=== PATIENT | female | born 1950 | race Caucasian/White ===

== ENCOUNTER 2017-10-02 16:45 | Emergency (ER) | payer MEDICARE, MEDICAID ==
--- NOTE | 2017-10-02 18:03 | ER Document Report ---
ED Medical Screen (RME) - General Chief Complaint: Arm Problem Stated Complaint: LEFT ARM PAIN Time Seen by Provider: 10/02/17 18:01 Mode of Arrival: Ambulatory Information source: Patient TRAVEL OUTSIDE OF THE [place] IN LAST 30 DAYS: No - HPI Patient complains to provider of: L arm pain Onset: Other - pt. with 2 day h/o L arm pain and swelling - Related Data Allergies/Adverse Reactions: latex [Latex] Allergy (Intermediate, Verified 10/02/17 17:59) Hives phenytoin sodium [From Dilantin] Allergy (Intermediate, Verified 10/02/17 17:59) Hives phenytoin sodium extended [From Dilantin] Allergy (Intermediate, Verified 17:59) Hives topiramate [From Topamax] Allergy (Mild, Verified 10/02/17 17:59) Hives,heart races amoxicillin [Amoxicillin] Allergy (Verified 10/02/17 17:59) amoxicillin trihydrate [From Augmentin] Allergy (Verified 10/02/17 17:59) CLOSED THROAT bupropion HCl [From Wellbutrin] Allergy (Verified 10/02/17 17:59) carbamazepine [From Tegretol] Allergy (Verified 10/02/17 17:59) Hives clarithromycin [From Biaxin] Allergy (Verified 10/02/17 17:59) CLOSES THROAT divalproex sodium [From Depakote] Allergy (Verified 10/02/17 17:59) gabapentin [From Neurontin] Allergy (Verified 10/02/17 17:59) Potassium Clavulanate * [From Augmentin] Allergy (Verified 10/02/17 17:59) CLOSED THROAT quetiapine fumarate [From Seroquel] Allergy (Verified 10/02/17 17:59) TWITCHES sulfamethoxazole [From Bactrim] Allergy (Verified 10/02/17 17:59) trimethoprim [From Bactrim] Allergy (Verified 10/02/17 17:59) Past Medical History - Social History Chew tobacco use (# tins/day): No Frequency of alcohol use: daily Drug Abuse: None - Past Medical History Cardiac Medical History: Reports: Hx Hypercholesterolemia, Hx Hypertension Neurological Medical History: Reports: Hx Seizures - since 1989/none x 5 yrs at least Renal/ Medical History: Denies: Hx Peritoneal Dialysis GI Medical History: Reports: Hx Hiatal Hernia - LNF Skin Medical History: Reports Hx MRSA Psychiatric Medical History: Reports: Hx Anxiety, Hx Depression Past Surgical History: Reports: Hx Abdominal Surgery, Hx Cholecystectomy, Hx Hysterectomy, Hx Orthopedic Surgery - Right ankle, left shoulder., Hx Tonsillectomy - Immunizations Hx Diphtheria, Pertussis, Tetanus Vaccination: Yes Physical Exam - Vital signs Vitals: Temp Pulse Resp BP Pulse Ox 97.9 F 83 16 104/69 94 10/02/17 16:51 10/02/17 16:51 10/02/17 16:51 10/02/17 16:51 10/02/17 16:51 Course - Vital Signs Vital signs: Temp Pulse Resp BP Pulse Ox 97.9 F 83 16 104/69 94 10/02/17 16:51 10/02/17 16:51 10/02/17 16:51 10/02/17 16:51 10/02/17 16:51
[2017-10-02 19:03] LABS: ABSOLUTE EOSINOPHILS # (AUTO) 0.5 10^3/uL (0.0-0.6); ABSOLUTE LYMPHOCYTES (AUTO) 1.8 10^3/uL (0.5-4.7); ABSOLUTE MONOCYTES (AUTO) 0.3 10^3/uL (0.1-1.4); ABSOLUTE NEUT (AUTO) 4.8 10^3/uL (1.7-8.2); BASOPHILS % (AUTO) 0.6 % (0-2); EOSINOPHILS % (AUTO) 6.8 % (0-6); HEMATOCRIT 36.5 % (36.0-47.0); HEMOGLOBIN 12.4 g/dL (12.0-15.5); LYMPHOCYTES % (AUTO) 24.3 % (13-45); MEAN CORPUSCULAR HEMOGLOBIN 31.1 pg (27.0-33.4); MEAN CORPUSCULAR VOLUME 92 fl (80-97); MONOCYTES % (AUTO) 4.5 % (3-13); PLATELET COUNT 230 10^3/uL (150-450); RED BLOOD COUNT 3.98 10^6/uL (3.72-5.28); RED CELL DISTRIBUTION WIDTH 13.4 % (11.5-14.0); SEGMENTED NEUTROPHILS % (AUTO) 63.8 % (42-78); TOTAL CELLS COUNTED % (AUTO) 100 %; WHITE BLOOD COUNT 7.5 10^3/uL (4.0-10.5)
[2017-10-02 19:34] LABS: BLOOD UREA NITROGEN 15 mg/dL (7-20); CALCIUM 10.3 mg/dL (8.4-10.2); GLUCOSE 76 mg/dL (75-110)
[2017-10-02 19:35] LABS: ALANINE AMINOTRANSFERASE 34 U/L (9-52); ALBUMIN 4.9 g/dL (3.5-5.0); ALKALINE PHOSPHATASE 87 U/L (38-126); ANION GAP 13 (5-19); ASPARTATE AMINO TRANSFERASE 35 U/L (14-36); BILIRUBIN,DIRECT 0.2 mg/dL (0.0-0.4); BILIRUBIN,TOTAL 0.3 mg/dL (0.2-1.3); CARBON DIOXIDE 27 mmol/L (22-30); CHLORIDE 98 mmol/L (98-107); POTASSIUM 4.7 mmol/L (3.6-5.0); SODIUM 137.9 mmol/L (137-145); TOTAL PROTEIN 7.2 g/dL (6.3-8.2)
--- NOTE | 2017-10-02 21:01 | RADIOLOGY REPORT (SQ) ---
EXAM DESCRIPTION: VENOUS UNILATERAL UPPER COMPLETED DATE/TIME: 10/02/2017 8:27 pm REASON FOR STUDY: L arm swelling and pain COMPARISON: None. TECHNIQUE: Dynamic and static solis scale and color images acquired of the left arm venous system. Se lected spectral images acquired with additional compression and augmentation maneuvers. The contralat eral subclavian vein and internal jugular vein were also imaged. Images stored on PACS. LIMITATIONS: None. FINDINGS: INTERNAL JUGULAR VEIN: Normal phasicity, compression, augmentation. No visualized echogeni c material on solis scale. No defects on color images. Comparison opposite side normal. SUBCLAVIAN VEIN: Normal compression, augmentation. No visualized echogenic material on solis scale. No defects on color images. AXILLARY VEIN: Normal compression, augmentation. No visualized echogenic material on solis scale. No d efects on color images. BRACHIAL VEIN: Normal compression, augmentation. No visualized echogenic material on solis scale. No d efects on color images. BASILIC VEIN: Normal compression, augmentation. No visualized echogenic material on solis scale. No de fects on color images. CEPHALIC VEIN: Normal compression, augmentation. No visualized echogenic material on solis scale. No d efects on color images. OTHER: No other significant finding. CONTRALATERAL SUBCLAVIAN VEIN AND INTERNAL JUGULAR VEIN: Normal phasicity, compression and augmentation. No visualized echogenic material on solis scale. No de fects on color images. IMPRESSION: NO EVIDENCE DVT OR SVT LEFT ARM. TECHNICAL DOCUMENTATION: JOB ID: [id number] [place]-72 2010 [employer]- All Rights Reserved Reading location - IP/workstation name: [employer]
[2017-10-02] MEDS ORDERED: PREDNISONE 20 MG TABLET PO ONE (21:18)
[2017-10-02] MEDS ORDERED: CETIRIZINE 10 MG TABLET PO ONE (21:19)
--- NOTE | 2017-10-02 21:22 | ER Document Report ---
ED General - General Chief Complaint: Arm Problem Stated Complaint: LEFT ARM PAIN Time Seen by Provider: 10/02/17 18:01 Mode of Arrival: Ambulatory Notes: Patient is a 67 year old female who presents with 3 days of increasing swelling and pain to her bilateral upper extremities worse than the left. Patient states that she was working outdoors, trimming plants and trees. She states several hours after completing this project she noticed increasing swelling and redness as well as a discomfort to her bilateral upper extremities although it appeared first on her left arm. She states that since that time it has gotten progressively worse. She has not tried any to improve her symptoms and has not noted that anything has worsened the symptoms. She denies a history of similar symptoms in the past. She has noted a small area that is also present on her central chest but denies any additional areas of rash. Denies any shortness of breath, wheezing, lightheadedness, syncope, vomiting, diarrhea or abdominal pain. She has not seen her primary care doctor regarding today's concerns. TRAVEL OUTSIDE OF THE [place] IN LAST 30 DAYS: No - Related Data Allergies/Adverse Reactions: latex [Latex] Allergy (Intermediate, Verified 10/02/17 17:59) Hives phenytoin sodium [From Dilantin] Allergy (Intermediate, Verified 10/02/17 17:59) Hives phenytoin sodium extended [From Dilantin] Allergy (Intermediate, Verified 17:59) Hives topiramate [From Topamax] Allergy (Mild, Verified 10/02/17 17:59) Hives,heart races amoxicillin [Amoxicillin] Allergy (Verified 10/02/17 17:59) amoxicillin trihydrate [From Augmentin] Allergy (Verified 10/02/17 17:59) CLOSED THROAT bupropion HCl [From Wellbutrin] Allergy (Verified 10/02/17 17:59) carbamazepine [From Tegretol] Allergy (Verified 10/02/17 17:59) Hives clarithromycin [From Biaxin] Allergy (Verified 10/02/17 17:59) CLOSES THROAT divalproex sodium [From Depakote] Allergy (Verified 10/02/17 17:59) gabapentin [From Neurontin] Allergy (Verified 10/02/17 17:59) Potassium Clavulanate * [From Augmentin] Allergy (Verified 10/02/17 17:59) CLOSED THROAT quetiapine fumarate [From Seroquel] Allergy (Verified 10/02/17 17:59) TWITCHES sulfamethoxazole [From Bactrim] Allergy (Verified 10/02/17 17:59) trimethoprim [From Bactrim] Allergy (Verified 10/02/17 17:59) Past Medical History - General Information source: Patient - Social History Smoking Status: Current Every Day Smoker Chew tobacco use (# tins/day): No Frequency of alcohol use: daily Drug Abuse: None Lives with: Family Family History: Reviewed & Not Pertinent Patient has suicidal ideation: No Patient has homicidal ideation: No - Past Medical History Cardiac Medical History: Reports: Hx Hypercholesterolemia, Hx Hypertension Neurological Medical History: Reports: Hx Seizures - since 1989/none x 5 yrs at least Renal/ Medical History: Denies: Hx Peritoneal Dialysis GI Medical History: Reports: Hx Hiatal Hernia - LNF Skin Medical History: Reports Hx MRSA Psychiatric Medical History: Reports: Hx Anxiety, Hx Depression Past Surgical History: Reports: Hx Abdominal Surgery, Hx Cholecystectomy, Hx Hysterectomy, Hx Orthopedic Surgery - Right ankle, left shoulder., Hx Tonsillectomy - Immunizations Hx Diphtheria, Pertussis, Tetanus Vaccination: Yes Review of Systems - Review of Systems Notes: Constitutional: Negative for fever. HENT: Negative for sore throat. Eyes: Negative for visual changes. Cardiovascular: Negative for chest pain. Respiratory: Negative for shortness of breath. Gastrointestinal: Negative for abdominal pain, vomiting or diarrhea. Genitourinary: Negative for dysuria. Musculoskeletal: Negative for back pain. Skin: Positive for rash. Neurological: Negative for headaches, weakness or numbness. 10 point ROS negative except as marked above and in HPI. Physical Exam - Vital signs Vitals: Temp Pulse Resp BP Pulse Ox 97.9 F 83 16 104/69 94 10/02/17 16:51 10/02/17 16:51 10/02/17 16:51 10/02/17 16:51 10/02/17 16:51 Interpretation: Normal Notes: PHYSICAL EXAMINATION: GENERAL: Well-appearing, well-nourished and in no acute distress. HEAD: Atraumatic, normocephalic. EYES: Pupils equal round and reactive to light, extraocular movements intact, sclera anicteric, conjunctiva are normal. ENT: nares patent, oropharynx clear without exudates. Moist mucous membranes. NECK: Normal range of motion, supple without lymphadenopathy LUNGS: Breath sounds clear to auscultation bilaterally and equal. No wheezes rales or rhonchi. HEART: Regular rate and rhythm without murmurs ABDOMEN: Soft, nontender, normoactive bowel sounds. No guarding, no rebound. No masses appreciated. EXTREMITIES: Normal range of motion, no pitting or edema. No cyanosis. NEUROLOGICAL: No focal neurological deficits. Moves all extremities spontaneously and on command. PSYCH: Normal mood, normal affect. SKIN: Warm, Dry, normal turgor, there is a raised, erythematous rash present on the bilateral forearms starting at the level of the antecubital fossa that is slightly worse than the left versus the right. There is also a small patch of redness in her central chest is again slightly raised. Course - Re-evaluation Re-evalutation: 10/02/17 21:19 Patient presents with erythema to the bilateral upper extremities at the antecubital fossa bilaterally extending onto the forearm slightly worse in the left versus the right. She also the patch over her central chest. This is consistent with likely contact dermatitis is this started after patient was working outside for several days with weeds and brush removal. Although a venous Doppler study was obtained I do have a very low clinical suspicion for a upper extremity DVT and the study is negative for that pathology. Labs otherwise unremarkable. Clinical history is not consistent with an acute cellulitis as it is bilateral and in multiple locations. Will start on topical triamcinolone, cetirizine, and a short course of prednisone. At this time will discharge with return precautions and follow-up recommendations. Verbal discharge instructions given a the bedside and opportunity for questions given. Medication warnings reviewed. Patient is in agreement with this plan and has verbalized understanding of return precautions and the need for primary care follow-up in the next 24-72 hours. - Vital Signs Vital signs: Temp Pulse Resp BP Pulse Ox 97.9 F 78 18 177/71 H 98 10/02/17 21:53 10/02/17 21:53 10/02/17 21:53 10/02/17 21:53 10/02/17 21:53 - Laboratory Result Diagrams: 10/02/17 18:45 10/02/17 18:45 Laboratory results interpreted by me: 02/24/18 02/24/18 18:45 18:45 Eosinophils % 6.8 H Calcium 10.3 H Discharge - Discharge Clinical Impression: Left upper arm pain Contact dermatitis Qualifiers: Contact dermatitis type: irritant Contact dermatitis trigger: unspecified trigger Qualified Code(s): L24.9 - Irritant contact dermatitis, unspecified cause Condition: Good Disposition: HOME, SELF-CARE Additional Instructions: Your symptoms appear to be most likely due to a contact irritation of your skin. Please apply the prescribed triamcinolone cream 3 times daily to the affected areas. Take the prednisone as directed. Please also take over-the- counter cetirizine twice daily until your symptoms resolved. Your labs and ultrasound are normal. Return to the emergency department immediately if you develop fever, worsening of the rash, have increasing pain, or have any other symptoms that are worrisome to you. Please follow-up with your primary care doctor within the next 3-4 days. Prescriptions: Prednisone [Deltasone 20 mg Tablet] 3 tab PO DAILY 5 Days tablet Triamcinolone Acetonide 80 gm TP TID #80 cream.gm. Referrals: LUAN HARVEY MD [Primary Care Provider] - Follow up in 3-5 days
[2017-10-02 21:54] VITALS: BP 177/71
== END 2017-10-02 21:54 | disposition home or self-care (01) ==
LOC: ER 16:45
DX: L24.9 Irritant contact dermatitis, unspecified cause (principal); M79.622 Pain in left upper arm; M79.601 Pain in right arm; I10 Essential (primary) hypertension; F17.200 Nicotine dependence, unspecified, uncomplicated; Z91.040 Latex allergy status; Z88.8 Allergy status to other drugs, medicaments and biological substances; Z88.0 Allergy status to penicillin; Z88.6 Allergy status to analgesic agent; Z86.14 Personal history of Methicillin resistant Staphylococcus aureus infection
CPT/HCPCS: 99284; 36415; 87040; 85025; 80053; 93971; A9270 ×2; J7512

== ENCOUNTER 2018-03-27 14:13 | Emergency (ER) | payer MEDICARE, MEDICAID ==
[2018-03-27 14:30] VITALS: BP 92/54
[2018-03-27] MEDS ORDERED: DIPH/PERTUSS(ACELL)/TETANUS VAC/PF 0.5 ML SYR (>=10YO) IM ONE (15:13)
[2018-03-27] MEDS ORDERED: LIDOCAINE 1% INJ-PF (10 MG/ML) 30 ML SDV INJ ONE (15:20)
[2018-03-27] MEDS ORDERED: CEPHALEXIN 500 MG CAPSULE PO ONE (15:56)
--- NOTE | 2018-03-27 16:03 | ER Document Report ---
ED Extremity Problem, Lower - General Chief Complaint: Laceration Stated Complaint: FOOT PAIN Time Seen by Provider: 03/27/18 14:54 Mode of Arrival: Ambulatory Information source: Patient Notes: 68-year-old female presents to ED for complaint of laceration to her left heel. She states she caught it in screen door last night around 6 PM but she was not able to come to the emergency room at that time because her significant other had started his dialysis at home and could not bring her. Laceration was more than 18 hours old at the time of her visit. Patient was alert and oriented respirations regular and unlabored no signs or symptoms of sepsis. She stated that her friend had bandaged it last night and this morning when she tried to take the Benadryl she had to soak it because it was stuck to her heel. TRAVEL OUTSIDE OF THE [place] IN LAST 30 DAYS: No - HPI Patient complains to provider of: Injury, Pain Location: Ankle - Left posterior ankle Occurred: Yesterday Where: Home, Indoors Onset/Duration: Sudden, Persistent Quality of pain: Sharp Severity: Moderate Pain Level: 4 Context: Laceration Recent injury: Yes Associated symptoms: Painful ambulation Exacerbated by: Movement, Walking Relieved by: Elevation - Related Data Allergies/Adverse Reactions: latex [Latex] Allergy (Intermediate, Verified 03/27/18 14:14) Hives phenytoin sodium [From Dilantin] Allergy (Intermediate, Verified 03/27/18 14:14) Hives phenytoin sodium extended [From Dilantin] Allergy (Intermediate, Verified 14:14) Hives topiramate [From Topamax] Allergy (Mild, Verified 03/27/18 14:14) Hives,heart races amoxicillin [Amoxicillin] Allergy (Verified 03/27/18 14:14) amoxicillin trihydrate [From Augmentin] Allergy (Verified 03/27/18 14:14) CLOSED THROAT bupropion HCl [From Wellbutrin] Allergy (Verified 03/27/18 14:14) carbamazepine [From Tegretol] Allergy (Verified 03/27/18 14:14) Hives clarithromycin [From Biaxin] Allergy (Verified 03/27/18 14:14) CLOSES THROAT divalproex sodium [From Depakote] Allergy (Verified 03/27/18 14:14) gabapentin [From Neurontin] Allergy (Verified 03/27/18 14:14) Potassium Clavulanate * [From Augmentin] Allergy (Verified 03/27/18 14:14) CLOSED THROAT quetiapine fumarate [From Seroquel] Allergy (Verified 03/27/18 14:14) TWITCHES sulfamethoxazole [From Bactrim] Allergy (Verified 03/27/18 14:14) trimethoprim [From Bactrim] Allergy (Verified 03/27/18 14:14) Past Medical History - General Information source: Patient - Social History Smoking Status: Current Every Day Smoker Cigarette use (# per day): Yes - 1/2-1 pack per day Chew tobacco use (# tins/day): No Smoking Education Provided: Yes - 4 minutes Frequency of alcohol use: Social Drug Abuse: None Occupation: Disability Lives with: Friend Family History: Reviewed & Not Pertinent Patient has suicidal ideation: No Patient has homicidal ideation: No - Past Medical History Cardiac Medical History: Reports: Hx Hypercholesterolemia, Hx Hypertension Pulmonary Medical History: Reports: Hx Pneumonia EENT Medical History: Reports: None Neurological Medical History: Reports: Hx Seizures - since 1989/none x 5 yrs at least, Other - 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 Endocrine Medical History: Reports: Hx Hypothyroidism Renal/ Medical History: Reports: Other - Endometriosis Malignancy Medical History: Reports: None GI Medical History: Reports: Hx Gastritis, Hx Gastroesophageal Reflux Disease, Hx Hiatal Hernia - LNF Musculoskeletal Medical History: Reports Hx Arthritis, Reports Hx Musculoskeletal Deformity, Reports Hx Musculoskeletal Trauma Skin Medical History: Reports Hx MRSA Psychiatric Medical History: Reports: Hx Anxiety, Hx Depression Traumatic Medical History: Reports: Hx Fractures - Left knee both wrist left ankle, Hx Spine Fracture Infectious Medical History: Reports: Hx MRSA Past Surgical History: Reports: Hx Abdominal Surgery - [place] fundoplication caused her to go on life support due to complications, Hx Cholecystectomy, Hx Hysterectomy, Hx Neurologic Surgery - 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, Hx Orthopedic Surgery - Right ankle, left shoulder., Hx Tonsillectomy - Immunizations Hx Diphtheria, Pertussis, Tetanus Vaccination: Yes - 03/27/2018 Review of Systems - Review of Systems Constitutional: No symptoms reported EENT: No symptoms reported Cardiovascular: No symptoms reported Respiratory: No symptoms reported Gastrointestinal: No symptoms reported Genitourinary: No symptoms reported Female Genitourinary: No symptoms reported Musculoskeletal: No symptoms reported Skin: Other - Laceration to left heel Hematologic/Lymphatic: No symptoms reported Neurological/Psychological: No symptoms reported -: Yes All other systems reviewed and negative Physical Exam - Vital signs Vitals: Temp Pulse Resp BP Pulse Ox 98.8 F 90 18 92/54 L 96 03/27/18 14:29 03/27/18 14:29 03/27/18 14:29 03/27/18 14:29 03/27/18 14:29 Interpretation: Normal - General General appearance: Appears well, Alert - HEENT Head: Normocephalic, Atraumatic Eyes: Normal Pupils: PERRL - Respiratory Respiratory status: No respiratory distress Chest status: Nontender Breath sounds: Normal Chest palpation: Normal - Cardiovascular Rhythm: Regular Heart sounds: Normal auscultation Murmur: No - Abdominal Inspection: Normal Distension: No distension Bowel sounds: Normal Tenderness: Nontender Organomegaly: No organomegaly - Back Back: Normal, Nontender - Extremities General upper extremity: Normal inspection, Nontender, Normal color, Normal ROM , Normal temperature General lower extremity: Normal inspection, Nontender, Normal color, Normal ROM , Normal temperature, Normal weight bearing. No: Dena's sign - Neurological Neuro grossly intact: Yes Cognition: Normal Orientation: AAOx4 Oziel Coma Scale Eye Opening: Spontaneous Oziel Coma Scale Verbal: Oriented Oziel Coma Scale Motor: Obeys Commands [place] Coma Scale Total: 15 Speech: Normal Motor strength normal: LUE, RUE, LLE, RLE Sensory: Normal - Psychological Associated symptoms: Normal affect, Normal mood - Skin Skin Temperature: Warm Skin Moisture: Dry Skin Color: Normal Skin irregularity: Laceration - 8 cm irregular Location of irregularity: Extremities - Left heel more than 18 hours old Course - Re-evaluation Re-evalutation: 03/28/18 01:[address] Franks before placing 5 sutures to pull wound together. Patient is started on antibiotics instructed to follow-up with orthopedics and her primary doctor and return to the ED for any signs or symptoms of infection to include redness swelling increased pain or drainage. came in and talked to the patient and explained why we were not close and it tighter but just pulling the edges a little bit together. - Vital Signs Vital signs: Temp Pulse Resp BP Pulse Ox 98.8 F 90 18 92/54 L 96 03/27/18 14:29 03/27/18 14:29 03/27/18 14:29 03/27/18 14:29 03/27/18 14:29 Procedures - Laceration/Wound Repair Left Foot Time completed: 16:03 Wound length (cm): 8 Wound's Depth, Shape: Irregular, Flap Laceration pre-procedure: Sterile PPE donned, Sterile drapes applied, Shur- Clens applied Anesthetic type: 1% Lidocaine Volume Anesthetic (mLs): 12 Wound explored: Contaminated Irrigated w/ Saline (mLs): 500 Wound Repaired With: Sutures Suture Size/Type: 3:0, Ethilon Number of Sutures: 5 Layer Closure?: No Post-procedure wound care: Sterile dressing applied Post-procedure NV exam normal: No Complications: Yes - more than 18 hours old only prevented gapping Discharge - Discharge Clinical Impression: Laceration of left heel Qualifiers: Encounter type: initial encounter Qualified Code(s): S91.312A - Laceration without foreign body, left foot, initial encounter Condition: Stable Disposition: HOME, SELF-CARE Additional Instructions: LACERATION CARE: Your laceration has been sutured to keep the skin edges aligned during healing. The time of suture removal depends on the nature and location of your cut. Please follow the care instructions the doctor has outlined for you and return for further care, according to the schedule you've been given. Keep the wound and dressing clean. Unless you were told otherwise, you may shower daily, blotting the wound dry with a clean, unused towel. At other times, If the dressing gets wet or blood soaked, remove it and blot the wound dry, then reapply a new dressing. Unless you were instructed otherwise, dressings should be changed at least daily. If any signs of infection occur (swelling, redness, drainage, increasing tenderness, red streaks, tender lumps in the armpit or groin above the laceration, or fever), see the doctor immediately. SOAP CLEANSING: Gently wash the wound daily using a mild soap (like Ivory, Phisoderm, Neutrogena). Use warm water, rubbing gently until all debris, ooze, and crusting have been washed from the wound. Allow to dry briefly (about 10 minutes) after cleaning. Repeat this cleansing at least three times a day for the first two days and then once or twice a day. ANTIBIOTIC OINTMENT PROTECTION: Your wounds are such that dressing them is not practical or optional. After cleansing, you should apply a thin coating of antibiotic ointment ( Bacitracin, not Neosporin) to the wounds at least three times daily. This lessens infection risk, and may decrease the amount of scarring. Use a q-tip or dull butter knife, not your finger, to apply this ointment. Any debris or ooze which builds up in the ointment should be gently rubbed off with a sterile gauze pad. Harder crusting may need to be gently scrubbed off with a clean wash cloth with soap and warm water, perhaps applying a warm, wet wash cloth to the wound for ten minutes first. Development of redness, severe itching, or blistering may mean allergy to the ointment. See the doctor. TETANUS IMMUNIZATION GIVEN: You have been given an immunization against tetanus. Please record this in your records. In general, a booster is needed only once every 10 years. The tetanus shot protects against tetanus or "lockjaw," which is a complication of certain wound infections (the tetanus shot cannot protect against the actual infection). The immunization site may become warm and red due to local reaction. If this occurs, apply warm compresses and take aspirin or ibuprofen to reduce inflammation and discomfort. Return for evaluation if the reaction becomes severe. PROPHYLACTIC ANTIBIOTIC: The antibiotics which have been prescribed are designed to decrease the risk of infection. Only certain types of wounds benefit from this -- the typical cut, scrape, or burn DOES NOT require antibiotics. Of course, infection can still occur despite the use of prophylactic antibiotics. Your wound will heal with less chance of an infectious complication if you take the medication as directed. The most important dose is the FIRST dose, so don't delay filling the prescription! FOLLOW-UP CARE: Please return in _tomorrow___for an infection check and dressing change. Your sutures should be removed in ___10__ days. To facilitate a timely removal of your sutures, you may return to the Emergency Department at [facility]. You do not need to call for an appointment, but the best time to come in for suture removal is early in the morning. If you have been referred to another physician for follow-up care, call that physicians office for an appointment as you were instructed. If you experience a significant change in your laceration, or if you are concerned there may be an infection (swelling, redness, drainage, increasing tenderness, red streaks, tender lumps in the armpit or groin above the laceration, or fever) , return to the Emergency Department immediately re-evaluation. Prescriptions: Cephalexin Monohydrate [Keflex 500 mg Capsule] 500 mg PO Q6H 5 Days capsule Forms: Smoking Cessation Education Referrals: LUAN HARVEY MD [Primary Care Provider] - Follow up as needed
== END 2018-03-27 16:12 | disposition home or self-care (01) ==
LOC: EEVIPCON 14:13 → ER 14:13
PROC: 0HQNXZZ Repair Left Foot Skin, External Approach (ICD-10-PCS; principal; 2018-03-27)
DX: S91.312A Laceration without foreign body, left foot, initial encounter (principal); X58.XXXA Exposure to other specified factors, initial encounter; Y92.008 Other place in unspecified non-institutional (private) residence as the place of occurrence of the external cause; F17.210 Nicotine dependence, cigarettes, uncomplicated; I10 Essential (primary) hypertension; E78.00 Pure hypercholesterolemia, unspecified; Z91.040 Latex allergy status; Z86.14 Personal history of Methicillin resistant Staphylococcus aureus infection; Z88.0 Allergy status to penicillin; Z88.3 Allergy status to other anti-infective agents; Z23 Encounter for immunization
CPT/HCPCS: 99406; 99283; 90471; 90715; 12004; A9270; J3490

== ENCOUNTER 2018-03-28 14:23 | Emergency (ER) | payer MEDICARE, MEDICAID ==
[2018-03-28 14:40] VITALS: BP 139/65
--- NOTE | 2018-03-28 14:45 | ER Document Report ---
ED Suture/Wound Recheck - General Chief Complaint: Wound Recheck Stated Complaint: SUTURE CHECK Time Seen by Provider: 03/28/18 14:39 Mode of Arrival: Wheelchair Information source: Patient Notes: 68-year-old female presented ED for follow-up of laceration to her left heel. She states she she states she caught her feet in a outside screen door which caused the laceration. She did not come to the emergency room until 18 hours after the injury so it was not sutured completely as normal but only sutured enough to close the gaping wound. Patient was treated with Xeroform Telfa and gauze yesterday as well as antibiotics and then the wound was redressed today and patient will be discharged home to continue taking her Keflex and follow-up with her primary doctor to have the sutures removed. TRAVEL OUTSIDE OF THE [place] IN LAST 30 DAYS: No - HPI Previous ED treatment: Laceration repair Antibiotics given previously: Prescription Quality of pain: Achy Severity: Moderate Pain Level: 3 Context: Injury Symptoms since procedure: Pain. denies: Drainage, Fever, Numbness, Red streaks , Redness, Swelling, Weakness Exacerbated by: Movement, Walking Relieved by: Other - Keep in her foot in the air and not walking on - Related Data Allergies/Adverse Reactions: latex [Latex] Allergy (Intermediate, Verified 03/28/18 14:24) Hives phenytoin sodium [From Dilantin] Allergy (Intermediate, Verified 03/28/18 14:24) Hives phenytoin sodium extended [From Dilantin] Allergy (Intermediate, Verified 14:24) Hives topiramate [From Topamax] Allergy (Mild, Verified 03/28/18 14:24) Hives,heart races amoxicillin [Amoxicillin] Allergy (Verified 03/28/18 14:24) amoxicillin trihydrate [From Augmentin] Allergy (Verified 03/28/18 14:24) CLOSED THROAT bupropion HCl [From Wellbutrin] Allergy (Verified 03/28/18 14:24) carbamazepine [From Tegretol] Allergy (Verified 03/28/18 14:24) Hives clarithromycin [From Biaxin] Allergy (Verified 03/28/18 14:24) CLOSES THROAT divalproex sodium [From Depakote] Allergy (Verified 03/28/18 14:24) gabapentin [From Neurontin] Allergy (Verified 03/28/18 14:24) Potassium Clavulanate * [From Augmentin] Allergy (Verified 03/28/18 14:24) CLOSED THROAT quetiapine fumarate [From Seroquel] Allergy (Verified 03/28/18 14:24) TWITCHES sulfamethoxazole [From Bactrim] Allergy (Verified 03/28/18 14:24) trimethoprim [From Bactrim] Allergy (Verified 03/28/18 14:24) Past Medical History - General Information source: Patient - Social History Smoking Status: Current Every Day Smoker Cigarette use (# per day): Yes - Half to 1 pack a day Chew tobacco use (# tins/day): No Smoking Education Provided: Yes - 4 minutes Frequency of alcohol use: Social Drug Abuse: None Occupation: Disability Lives with: Friend Family History: Reviewed & Not Pertinent Patient has suicidal ideation: No Patient has homicidal ideation: No - Past Medical History Cardiac Medical History: Reports: Hx Hypercholesterolemia, Hx Hypertension Pulmonary Medical History: Reports: Hx Pneumonia EENT Medical History: Reports: None Neurological Medical History: Reports: Hx Seizures - since 1989/none x 5 yrs at least Endocrine Medical History: Reports: Hx Hypothyroidism Renal/ Medical History: Reports: None Malignancy Medical History: Reports: None GI Medical History: Reports: Hx Gastritis, Hx Gastroesophageal Reflux Disease, Hx Hiatal Hernia - LNF Musculoskeletal Medical History: Reports Hx Arthritis, Reports Hx Musculoskeletal Deformity, Reports Hx Musculoskeletal Trauma Skin Medical History: Reports Hx MRSA Psychiatric Medical History: Reports: Hx Anxiety, Hx Depression Traumatic Medical History: Reports: Hx Fractures - Left knee both wrist left ankle, Hx Spine Fracture Infectious Medical History: Reports: Hx MRSA Past Surgical History: Reports: Hx Abdominal Surgery - Lakeisha fundoplication caused her to go on life support due to complications, Hx Cholecystectomy, Hx Hysterectomy, Hx Neurologic Surgery - 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, Hx Orthopedic Surgery - Right ankle, left shoulder., Hx Tonsillectomy - Immunizations Hx Diphtheria, Pertussis, Tetanus Vaccination: Yes - 03/27/2018 Review of Systems - Review of Systems Constitutional: No symptoms reported EENT: No symptoms reported Cardiovascular: No symptoms reported Respiratory: No symptoms reported Gastrointestinal: No symptoms reported Genitourinary: No symptoms reported Female Genitourinary: No symptoms reported Musculoskeletal: No symptoms reported Skin: Other Hematologic/Lymphatic: No symptoms reported Neurological/Psychological: No symptoms reported Physical Exam - Vital signs Vitals: Temp Pulse Resp BP Pulse Ox 98.7 F 91 18 139/65 H 96 03/28/18 14:32 03/28/18 14:32 03/28/18 14:32 03/28/18 14:32 03/28/18 14:32 - Skin Skin irregularity: Laceration - Healing laceration to left heel Location of irregularity: Extremities - No redness no swelling no drainage noted to the laceration to her left heel. Wound is healing as expected. Course - Re-evaluation Re-evalutation: 03/28/18 14:50 Dressing change to left ankle. New Xeroform, Telfa, and Kerlix applied. Patient instructed to continue using her antibiotics. Patient given instructions for continued dressing changes with bacitracin Telfa and Kerlix. Friend who is with her states that the neighbor will be doing her dressing changes for her. Patient states she is already scheduled her appointment to have the sutures removed. Patient discharged home. - Vital Signs Vital signs: Temp Pulse Resp BP Pulse Ox 98.7 F 91 18 139/65 H 96 03/28/18 14:32 03/28/18 14:32 03/28/18 14:32 03/28/18 14:32 03/28/18 14:32 Discharge - Discharge Clinical Impression: Encounter for re-check of laceration wound Condition: Stable Disposition: HOME, SELF-CARE Additional Instructions: You were seen today for reexamination of your laceration to your left heel. There is no signs of infection at this time. SOAP CLEANSING: Gently wash the wound daily using a mild soap (like Ivory, Phisoderm, Neutrogena). Use warm water, rubbing gently until all debris, ooze, and crusting have been washed from the wound. Allow to dry briefly (about 10 minutes) after cleaning. Repeat this cleansing at least three times a day for the first two days and then once or twice a day. ANTIBIOTIC OINTMENT PROTECTION: Your wounds are such that dressing them is not practical or optional. After cleansing, you should apply a thin coating of antibiotic ointment ( Bacitracin, not Neosporin) to the wounds at least three times daily. This lessens infection risk, and may decrease the amount of scarring. Use a q-tip or dull butter knife, not your finger, to apply this ointment. Any debris or ooze which builds up in the ointment should be gently rubbed off with a sterile gauze pad. Harder crusting may need to be gently scrubbed off with a clean wash cloth with soap and warm water, perhaps applying a warm, wet wash cloth to the wound for ten minutes first. Development of redness, severe itching, or blistering may mean allergy to the ointment. See the doctor. PROPHYLACTIC ANTIBIOTIC: The antibiotics which have been prescribed are designed to decrease the risk of infection. Only certain types of wounds benefit from this -- the typical cut, scrape, or burn DOES NOT require antibiotics. Of course, infection can still occur despite the use of prophylactic antibiotics. Your wound will heal with less chance of an infectious complication if you take the medication as directed. The most important dose is the FIRST dose, so don't delay filling the prescription! FOLLOW-UP CARE: Your sutures should be removed in _9____ days. To facilitate a timely removal of your sutures, you may return to the Emergency Department at [facility]. You do not need to call for an appointment, but the best time to come in for suture removal is early in the morning. If you have been referred to another physician for follow-up care, call that physicians office for an appointment as you were instructed. If you experience a significant change in your laceration, or if you are concerned there may be an infection (swelling, redness, drainage, increasing tenderness, red streaks, tender lumps in the armpit or groin above the laceration, or fever) , return to the Emergency Department immediately re-evaluation. Referrals: LUAN HARVEY MD [Primary Care Provider] - 04/06/18
== END 2018-03-28 18:41 | disposition home or self-care (01) ==
LOC: ER 14:23
DX: S91.312D Laceration without foreign body, left foot, subsequent encounter (principal); W23.0XXD Caught, crushed, jammed, or pinched between moving objects, subsequent encounter; I10 Essential (primary) hypertension; F17.210 Nicotine dependence, cigarettes, uncomplicated; Z71.6 Tobacco abuse counseling; Z86.14 Personal history of Methicillin resistant Staphylococcus aureus infection; Z91.040 Latex allergy status; Z88.8 Allergy status to other drugs, medicaments and biological substances; Z88.0 Allergy status to penicillin; Z88.1 Allergy status to other antibiotic agents; Z88.6 Allergy status to analgesic agent
CPT/HCPCS: 99281

== ENCOUNTER 2018-04-03 14:09 | Emergency (ER) | payer MEDICARE, MEDICAID ==
[2018-04-03 14:37] VITALS: BP 172/81
--- NOTE | 2018-04-03 16:00 | ER Document Report ---
ED Medical Screen (RME) - General Chief Complaint: Suture Recheck Stated Complaint: FOOT PAIN Time Seen by Provider: 04/03/18 15:51 Mode of Arrival: Ambulatory Information source: Patient TRAVEL OUTSIDE OF THE [place] IN LAST 30 DAYS: No - HPI Patient complains to provider of: Stitches in the left foot Onset: Other - [age]-year-old woman who presents for wound recheck, she has had a stitched wound ever since catching her foot on a door, had finished a outpatient prescription of Keflex was concerned today because she change the dressing and had some purulent drainage from it, denies fevers chills stranding from the leg difficulty weightbearing pain elsewhere. She had been seen twice for a wound check for this and is scheduled in 2 days to have a repeat wound check. - Related Data Allergies/Adverse Reactions: latex [Latex] Allergy (Intermediate, Verified 04/03/18 15:48) Hives phenytoin sodium [From Dilantin] Allergy (Intermediate, Verified 04/03/18 15:48) Hives phenytoin sodium extended [From Dilantin] Allergy (Intermediate, Verified 15:48) Hives topiramate [From Topamax] Allergy (Mild, Verified 04/03/18 15:48) Hives,heart races amoxicillin [Amoxicillin] Allergy (Verified 04/03/18 15:48) amoxicillin trihydrate [From Augmentin] Allergy (Verified 04/03/18 15:48) CLOSED THROAT bupropion HCl [From Wellbutrin] Allergy (Verified 04/03/18 15:48) carbamazepine [From Tegretol] Allergy (Verified 04/03/18 15:48) Hives clarithromycin [From Biaxin] Allergy (Verified 04/03/18 15:48) CLOSES THROAT divalproex sodium [From Depakote] Allergy (Verified 04/03/18 15:48) gabapentin [From Neurontin] Allergy (Verified 04/03/18 15:48) Potassium Clavulanate * [From Augmentin] Allergy (Verified 04/03/18 15:48) CLOSED THROAT quetiapine fumarate [From Seroquel] Allergy (Verified 04/03/18 15:48) TWITCHES sulfamethoxazole [From Bactrim] Allergy (Verified 04/03/18 15:48) trimethoprim [From Bactrim] Allergy (Verified 04/03/18 15:48) Past Medical History - General Information source: Patient - Social History Chew tobacco use (# tins/day): No Frequency of alcohol use: daily Drug Abuse: None - Past Medical History Cardiac Medical History: Reports: Hx Hypercholesterolemia, Hx Hypertension Pulmonary Medical History: Reports: Hx Pneumonia Neurological Medical History: Reports: Hx Seizures - since 1989/none x 5 yrs at least Endocrine Medical History: Reports: Hx Hypothyroidism Renal/ Medical History: Denies: Hx Peritoneal Dialysis GI Medical History: Reports: Hx Gastritis, Hx Gastroesophageal Reflux Disease, Hx Hiatal Hernia - LNF Musculoskeltal Medical History: Reports Hx Arthritis, Reports Hx Musculoskeletal Deformity, Reports Hx Musculoskeletal Trauma Skin Medical History: Reports Hx MRSA Psychiatric Medical History: Reports: Hx Anxiety, Hx Depression Traumatic Medical History: Reports: Hx Fractures - Left knee both wrist left ankle, Hx Spine Fracture Infectious Medical History: Reports: Hx MRSA Past Surgical History: Reports: Hx Abdominal Surgery - Lakeisha fundoplication caused her to go on life support due to complications, Hx Cholecystectomy, Hx Hysterectomy, Hx Neurologic Surgery - 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, Hx Orthopedic Surgery - Right ankle, left shoulder., Hx Tonsillectomy - Immunizations Hx Diphtheria, Pertussis, Tetanus Vaccination: Yes - 03/27/2018 Review of Systems - Review of Systems -: Yes All other systems reviewed and negative Physical Exam - Vital signs Vitals: Temp Pulse Resp BP Pulse Ox 98.2 F 86 18 172/81 H 98 04/03/18 14:36 04/03/18 14:36 04/03/18 14:36 04/03/18 14:36 04/03/18 14:36 - General General appearance: Appears well In distress: None - HEENT Head: Normocephalic Eyes: Normal Conjunctiva: Normal Cornea: Normal - Respiratory Respiratory status: No respiratory distress, Retractions Breath sounds: Normal - Cardiovascular Rhythm: Regular Heart sounds: Normal auscultation Murmur: No - Abdominal Inspection: Normal Distension: No distension Tenderness: Nontender - Back Back: Normal - Extremities General upper extremity: Normal inspection General lower extremity: Other - The left lower extremity is wrapped, upon removing bandage from the left ankle there is a wound which is well approximated and healing with clean edges, there is a small area which demonstrates some gaping over the posterior aspect where the skin is unable to be approximated. There is no active purulent drainage, no obvious erythema Course - Re-evaluation Re-evalutation: 04/03/18 21:29 [age]-year-old female presents for wound check. The wound itself looks relatively clean and well-healing she did note that there was some drainage from it, she previously had finished a course of Keflex , she has multiple allergies to antibiotics as such we will prefer to use doxycycline, this patient has a wound check scheduled in 2 days, she will be followed up she has been given return precautions as well in case of any worsening though I do not believe this will be the case. She was also counseled in regards to her blood pressure and smoking cessation. - Vital Signs Vital signs: Temp Pulse Resp BP Pulse Ox 98.2 F 82 18 172/81 H 100 04/03/18 14:36 04/03/18 16:17 04/03/18 14:36 04/03/18 14:36 04/03/18 16:17 Doctor's Discharge - Discharge Clinical Impression: Visit for wound check Cellulitis Qualifiers: Site of cellulitis: other site Qualified Code(s): L03.818 - Cellulitis of other sites Condition: Good Disposition: HOME, SELF-CARE Instructions: Doxycycline ([facility]) Additional Instructions: He was seen today for a wound check, it does not appear that your wound is obviously infected you are doing a good job dressing it. Use the doxycycline prescribed to use as directed. Return for worsening fevers or chills inability to walk or pain. Otherwise follow-up as previously scheduled with your provider. Prescriptions: Doxycycline Hyclate 100 mg PO BID #14 capsule Forms: Smoking Cessation Education, Elevated Blood Pressure Referrals: LUAN HARVEY MD [Primary Care Provider] - Follow up as needed
== END 2018-04-03 16:30 | disposition home or self-care (01) ==
LOC: ER 14:09
DX: S91.302D Unspecified open wound, left foot, subsequent encounter (principal); W22.8XXD Striking against or struck by other objects, subsequent encounter; L03.90 Cellulitis, unspecified; I10 Essential (primary) hypertension; Z86.14 Personal history of Methicillin resistant Staphylococcus aureus infection; Z91.041 Radiographic dye allergy status; Z88.8 Allergy status to other drugs, medicaments and biological substances; Z88.0 Allergy status to penicillin; Z88.1 Allergy status to other antibiotic agents; Z88.6 Allergy status to analgesic agent
CPT/HCPCS: 99282

== ENCOUNTER 2018-04-26 07:23 | Emergency (ER) | payer MEDICARE, MEDICAID ==
[2018-04-26 07:32] VITALS: BP 100/69
--- NOTE | 2018-04-26 08:21 | ER Document Report ---
HPI - HPI Patient complains to provider of: Left foot wound Onset: Other - 2 weeks ago Onset/Duration: Persistent Pain Level: Denies Context: Patient states she cut her foot on the screen door 2 weeks ago. Patient states she had her sutures removed about a week ago. Patient states that she is noticed some drainage and she is concerned that the wound is infected. Patient denies any fever. Associated Symptoms: Other - Left foot wound Exacerbated by: Denies Relieved by: Denies Similar symptoms previously: No Recently seen / treated by doctor: Yes - ROS ROS below otherwise negative: Yes Systems Reviewed and Negative: Yes All other systems reviewed and negative - CONSTITUTIONAL Constitutional: DENIES: Fever, Chills - REPRODUCTIVE Reproductive: DENIES: : - DERM Notes: Open wound to heal of left foot Past Medical History - General Information source: Patient - Social History Smoking Status: Current Every Day Smoker Smoking Education Provided: Yes Frequency of alcohol use: None Drug Abuse: None Occupation: None Family History: Reviewed & Not Pertinent - Past Medical History Cardiac Medical History: Reports: Hx Hypercholesterolemia, Hx Hypertension Pulmonary Medical History: Reports: Hx Pneumonia Neurological Medical History: Reports: Hx Seizures - since 1989/none x 5 yrs at least Endocrine Medical History: Reports: Hx Hypothyroidism Renal/ Medical History: Denies: Hx Peritoneal Dialysis GI Medical History: Reports: Hx Gastritis, Hx Gastroesophageal Reflux Disease, Hx Hiatal Hernia - LNF Musculoskeletal Medical History: Reports Hx Arthritis, Reports Hx Musculoskeletal Deformity, Reports Hx Musculoskeletal Trauma Skin Medical History: Reports Hx MRSA Psychiatric Medical History: Reports: Hx Anxiety, Hx Depression Traumatic Medical History: Reports: Hx Fractures - Left knee both wrist left ankle, Hx Spine Fracture Infectious Medical History: Reports: Hx MRSA Past Surgical History: Reports: Hx Abdominal Surgery - Lakeisha fundoplication caused her to go on life support due to complications, Hx Cholecystectomy, Hx Hysterectomy, Hx Neurologic Surgery - 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 IN LAST 30 DAYS: No - HEENT HEENT: Atraumatic, Normocephalic - NECK Neck: Normal Inspection - RESPIRATORY Respiratory: Breath Sounds Normal, No Respiratory Distress - CARDIOVASCULAR Cardiovascular: Regular Rate, Regular Rhythm Pulses: Normal: Dorsalis pedis - MUSCULOSKELETAL/EXTREMETIES Musculoskeletal/Extremeties: MAEW - NEURO Level of Consciousness: Awake, Alert, Appropriate Motor/Sensory: No Motor Deficit - DERM Integumentary: Warm, Dry Notes: Open wound posterior aspect of left heel, wound bed with normal granulation tissue, no purulence, no surrounding erythema Course - Vital Signs Vital signs: Temp Pulse Resp BP Pulse Ox 97.6 F 80 16 100/69 97 04/26/18 07:31 04/26/18 07:31 04/26/18 07:31 04/26/18 07:31 04/26/18 07:31 Discharge - Discharge Clinical Impression: Encounter for wound re-check Condition: Stable Disposition: HOME, SELF-CARE Instructions: Dressing Instructions for Open Wounds ([facility]) Additional Instructions: Return immediately for any new or worsening symptoms Followup with your primary care provider, call tomorrow to make a followup appointment Keep wound covered as it continues to heal. Continue to take your antibiotic as previously prescribed Referrals: LUAN HARVEY MD [Primary Care Provider] - Follow up as needed
== END 2018-04-26 08:39 | disposition home or self-care (01) ==
LOC: ER 07:23
DX: S91.312D Laceration without foreign body, left foot, subsequent encounter (principal); W45.8XXD Other foreign body or object entering through skin, subsequent encounter; F17.200 Nicotine dependence, unspecified, uncomplicated; I10 Essential (primary) hypertension; Z86.14 Personal history of Methicillin resistant Staphylococcus aureus infection
CPT/HCPCS: 99283

== ENCOUNTER → 2019-04-18 | Outpatient (CLI) | payer MEDICARE, MEDICAID ==
--- NOTE | 2019-04-18 10:32 | RADIOLOGY REPORT (SQ) ---
EXAM DESCRIPTION: LUMBAR SPINE COMPLETE COMPLETED DATE/TIME: 04/18/2019 10:22 am REASON FOR STUDY: LOW BACK PAIN M54.5 LOW BACK PAIN COMPARISON: 02/16/2008 NUMBER OF VIEWS: Five views including obliques. TECHNIQUE: AP, lateral, oblique, and sacral radiographic images acquired of the lumbar spine. LIMITATIONS: None. FINDINGS: MINERALIZATION: Normal. SEGMENTATION: Normal. No transitional anatomy. ALIGNMENT: There is grade 1 anterolisthesis of L4 on L5. VERTEBRAE: Chronic compression deformity is noted at T12. DISCS: Disc space narrowing at 4 5. POSTERIOR ELEMENTS: Pedicles and facets are intact. No pars defect or posterior arch defects. HARDWARE: None in the spine. PARASPINAL SOFT TISSUES: Normal. PELVIS: Intact as visualized. No fractures or worrisome bone lesions. SI joints intact. OTHER: No other significant finding. 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 Chronic T1 2 compression deformity with approximately 30 to 40% loss of height. TECHNICAL DOCUMENTATION: JOB ID: [id number] [employer]- All Rights Reserved Reading location - IP/workstation name: [email or web address]
== END ==
LOC: OD 09:50
PROVIDERS: ATTEND Family Medicine
DX: M51.36 Other intervertebral disc degeneration, lumbar region (principal); M54.5 Low back pain
CPT/HCPCS: 72110

== ENCOUNTER 2019-06-10 14:25 | Emergency (ER) | payer MEDICARE, MEDICAID ==
[2019-06-10 14:52] VITALS: BP 144/80
--- NOTE | 2019-06-10 15:03 | ER Document Report ---
ED Medical Screen (RME) - General Chief Complaint: Laceration Stated Complaint: LACERATION ABOVE RIGHT ELBOW Time Seen by Provider: 06/10/19 15:00 Primary Care Provider: LUAN HARVEY MD [Primary Care Provider] - Follow up as needed Mode of Arrival: Medic Information source: Patient Notes: 69-year-old female presents to ED for laceration to the right arm. She states she was out on her deck when she caught her arm on a coffee hook there was rested on her porch. She states her tetanus is up-to-date as she recently had stitches. Patient is alert oriented respirations regular nonlabored. She states when she sees blood she panics so she called the ambulance she converted up real quick until the ambulance got there. She smokes a pack a day, she has had 3 beers today and was working on her fourth when she injured herself. She denies use of drugs. I have greeted and performed a rapid initial assessment of this patient. A comprehensive ED assessment and evaluation of the patient, analysis of test results and completion of medical decision making process will be conducted by an additional ED providers. TRAVEL OUTSIDE OF THE [place] IN LAST 30 DAYS: No - Related Data Allergies/Adverse Reactions: latex [Latex] Allergy (Intermediate, Verified 04/26/18 07:26) Hives phenytoin sodium [From Dilantin] Allergy (Intermediate, Verified 04/26/18 07:26) Hives phenytoin sodium extended [From Dilantin] Allergy (Intermediate, Verified 04/26/18 07:26) Hives topiramate [From Topamax] Allergy (Mild, Verified 04/26/18 07:26) Hives,heart races amoxicillin [Amoxicillin] Allergy (Verified 04/26/18 07:26) amoxicillin trihydrate [From Augmentin] Allergy (Verified 04/26/18 07:26) CLOSED THROAT bupropion HCl [From Wellbutrin] Allergy (Verified 04/26/18 07:26) carbamazepine [From Tegretol] Allergy (Verified 04/26/18 07:26) Hives clarithromycin [From Biaxin] Allergy (Verified 04/26/18 07:26) CLOSES THROAT divalproex sodium [From Depakote] Allergy (Verified 04/26/18 07:26) gabapentin [From Neurontin] Allergy (Verified 04/26/18 07:26) Potassium Clavulanate * [From Augmentin] Allergy (Verified 04/26/18 07:26) CLOSED THROAT quetiapine fumarate [From Seroquel] Allergy (Verified 04/26/18 07:26) TWITCHES sulfamethoxazole [From Bactrim] Allergy (Verified 04/26/18 07:26) trimethoprim [From Bactrim] Allergy (Verified 04/26/18 07:26) Past Medical History - Past Medical History Cardiac Medical History: Reports: Hx Hypercholesterolemia, Hx Hypertension Pulmonary Medical History: Reports: Hx Pneumonia Neurological Medical History: Reports: Hx Seizures - since 1989/none x 5 yrs at least Endocrine Medical History: Reports: Hx Hypothyroidism Renal/ Medical History: Denies: Hx Peritoneal Dialysis GI Medical History: Reports: Hx Gastritis, Hx Gastroesophageal Reflux Disease, Hx Hiatal Hernia - LNF Musculoskeltal Medical History: Reports Hx Arthritis, Reports Hx Musculoskeletal Deformity, Reports Hx Musculoskeletal Trauma Skin Medical History: Reports Hx MRSA Psychiatric Medical History: Reports: Hx Anxiety, Hx Depression Traumatic Medical History: Reports: Hx Fractures - Left knee both wrist left ankle, Hx Spine Fracture Infectious Medical History: Reports: Hx MRSA Past Surgical History: Reports: Hx Abdominal Surgery - Lakeisha fundoplication caused her to go on life support due to complications, Hx Cholecystectomy, Hx Hysterectomy, Hx Neurologic Surgery - 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
[2019-06-10] MEDS ORDERED: LIDOCAINE 1%/EPINEPHRINE INJ 20 ML VIAL INJ ONE (16:05)
--- NOTE | 2019-06-10 16:14 | ER Document Report ---
HPI - HPI Time Seen by Provider: 06/10/19 15:00 Pain Level: 2 Context: Patient is a 69-year-old female who presents to the emergency department with chief complaint of laceration. Patient reports prior to arrival she hooked her right arm on a franchesca plant hook outside. Patient reports multiple skin tears and a laceration above the right elbow. Patient states she normally does have some numbness and tingling down the right arm but that there is no new or worse numbness and tingling present. Patient states she is extremely sensitive to blood and pain. Patient reports her tetanus shot is up-to-date. Patient did call EMS. They did place a nonstick dressing over the wound. Patient reports she had been drinking 3 beers prior to the incident. - REPRODUCTIVE Reproductive: DENIES: : Past Medical History - General Information source: Patient - Social History Smoking Status: Current Every Day Smoker Chew tobacco use (# tins/day): No Frequency of alcohol use: Heavy Drug Abuse: None Lives with: Family Family History: Reviewed & Not Pertinent Patient has suicidal ideation: No Patient has homicidal ideation: No - Past Medical History Cardiac Medical History: Reports: Hx Hypercholesterolemia, Hx Hypertension Pulmonary Medical History: Reports: Hx Pneumonia EENT Medical History: Reports: None Neurological Medical History: Reports: Hx Seizures - since 1989/none x 5 yrs at least Endocrine Medical History: Reports: Hx Hypothyroidism Renal/ Medical History: Reports: None. Denies: Hx Peritoneal Dialysis Malignancy Medical History: Reports: None GI Medical History: Reports: Hx Gastritis, Hx Gastroesophageal Reflux Disease, Hx Hiatal Hernia - LNF Musculoskeletal Medical History: Reports Hx Arthritis, Reports Hx Musculoskeletal Deformity, Reports Hx Musculoskeletal Trauma Skin Medical History: Reports Hx MRSA Psychiatric Medical History: Reports: Hx Anxiety, Hx Depression Traumatic Medical History: Reports: Hx Fractures - Left knee both wrist left ankle, Hx Spine Fracture Infectious Medical History: Reports: Hx MRSA Past Surgical History: Reports: Hx Abdominal Surgery - [place] fundoplication caused her 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 IN LAST 30 DAYS: No - HEENT HEENT: Atraumatic, Normocephalic, PERRLA - RESPIRATORY Respiratory: Breath Sounds Normal, No Respiratory Distress - CARDIOVASCULAR Cardiovascular: Regular Rate, Regular Rhythm - GI/ABDOMEN Gastrointestinal: Abdomen Soft, Abdomen Non-Tender, Normal Bowel Sounds - NEURO Level of Consciousness: Awake, Alert, Appropriate - DERM Integumentary: Warm, Dry, Laceration Notes: Patient has a jagged laceration ( estimated 3 cm noted above the right elbow on the dorsal aspect. ) She does have some surrounding skin tears that are irregular and jagged. There is no active bleeding. Subcutaneous tissue is visualized without muscle or tendon involvement. Patient has good flexion- extension of the right elbow joint. 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 Patient has strong +2 brachial and radial pulses. Course - Vital Signs Vital signs: Temp Pulse Resp BP Pulse Ox 98 F 96 16 144/80 H 97 06/10/19 14:50 06/10/19 14:50 06/10/19 14:50 06/10/19 14:50 06/10/19 14:50 Procedures - Laceration/Wound Repair Right Upper Arm Wound length (cm): 3 Wound's Depth, Shape: Irregular, Flap Laceration pre-procedure: Sterile PPE donned, Sterile drapes applied, Shur-Clens applied Anesthetic type: 1% Lidocaine w/epi Volume Anesthetic (mLs): 2 Wound explored: Clean Irrigated w/ Saline (mLs): 250 Wound Repaired With: Sutures Suture Size/Type: 4:0, Nylon Number of Sutures: 3 Post-procedure wound care: Sterile dressing applied Post-procedure NV exam normal: Yes Complications: No Adult Front & Back picture: 1 - Skin tears x 2 (jagged and irregular cleansed and covered with bacitracin and non stick dressing), 3 cm laceration superior to the skin tears approximated partially with 3 sutures. Wound reinforced with steri strips x 3. Discharge - Discharge Clinical Impression: Laceration of arm Qualifiers: Encounter type: initial encounter Laterality: right Qualified Code(s): S41.111A - Laceration without foreign body of right upper arm, initial encounter Condition: Stable Disposition: HOME, SELF-CARE Additional Instructions: LACERATION CARE: Your laceration has been sutured to keep the skin edges aligned during healing. The time of suture removal depends on the nature and location of your cut. Please follow the care instructions the doctor has outlined for you and return for further care, according to the schedule you've been given. Keep the wound and dressing clean. Unless you were told otherwise, you may shower daily, blotting the wound dry with a clean, unused towel. At other times, If the dressing gets wet or blood soaked, remove it and blot the wound dry, then reapply a new dressing. Unless you were instructed otherwise, dressings should be changed at least daily. If any signs of infection occur (swelling, redness, drainage, increasing tenderness, red streaks, tender lumps in the armpit or groin above the laceration, or fever), see the doctor immediately. SOAP CLEANSING: Gently wash the wound daily using a mild soap (like Ivory, Phisoderm, Neutrogena). Use warm water, rubbing gently until all debris, ooze, and crusting have been washed from the wound. Allow to dry briefly (about 10 minutes) after cleaning. Repeat this cleansing at least three times a day for the first two days and then once or twice a day. ANTIBIOTIC OINTMENT PROTECTION: Your wounds are such that dressing them is not practical or optional. After cleansing, you should apply a thin coating of antibiotic ointment (Bacitracin, not Neosporin) to the wounds at least three times daily. This lessens infection risk, and may decrease the amount of scarring. Use a q-tip or dull butter knife, not your finger, to apply this ointment. Any debris or ooze which builds up in the ointment should be gently rubbed off with a sterile gauze pad. Harder crusting may need to be gently scrubbed off with a clean wash cloth with soap and warm water, perhaps applying a warm, wet wash cloth to the wound for ten minutes first. Development of redness, severe itching, or blistering may mean allergy to the ointment. See the doctor. PROPHYLACTIC ANTIBIOTIC: The antibiotics which have been prescribed are designed to decrease the risk of infection. Only certain types of wounds benefit from this -- the typical cut, scrape, or burn DOES NOT require antibiotics. Of course, infection can still occur despite the use of prophylactic antibiotics. Your wound will heal with less chance of an infectious complication if you take the medication as directed. The most important dose is the FIRST dose, so don't delay filling the prescription! FOLLOW-UP CARE: Your sutures should be removed in _10___ days. To facilitate a timely removal of your sutures, you may return to the Emergency Department at [facility]. You do not need to call for an appointment, but the best time to come in for suture removal is early in the morning. If you have been referred to another physician for follow-up care, call that physicians office for an appointment as you were instructed. If you experience a significant change in your laceration, or if you are concerned there may be an infection (swelling, redness, drainage, increasing tenderness, red streaks, tender lumps in the armpit or groin above the laceration, or fever ), return to the Emergency Department immediately re-evaluation. Prescriptions: Cephalexin Monohydrate [Keflex 500 mg Capsule] 500 mg PO Q6H 5 Days #10 capsule Referrals: LUAN HARVEY MD [Primary Care Provider] - Follow up as needed
== END 2019-06-10 17:53 | disposition home or self-care (01) ==
LOC: ER 14:25
DX: S41.111A Laceration without foreign body of right upper arm, initial encounter (principal); W22.09XA Striking against other stationary object, initial encounter; F17.200 Nicotine dependence, unspecified, uncomplicated; E78.00 Pure hypercholesterolemia, unspecified; I10 Essential (primary) hypertension; Z86.14 Personal history of Methicillin resistant Staphylococcus aureus infection; Z90.710 Acquired absence of both cervix and uterus
CPT/HCPCS: 12002; J3490

== ENCOUNTER → 2020-08-05 | Outpatient (CLI) | payer MEDICARE, MEDICAID ==
--- NOTE | 2020-08-05 08:37 | WOMENS IMAGING REPORT ---
EXAM DESCRIPTION: BILAT SCREENING MAMMO W/CAD IMAGES COMPLETED DATE/TIME: 08/05/2020 7:47 am REASON FOR STUDY: ROUTINE BILATERAL SCREENING;Z12.31 Z12.31 ENCNTR SCREEN MAMMOGRAM FOR MALIGNANT N EOPLASM OF MADHU COMPARISON: 2015 EXAM PARAMETERS: Standard craniocaudal and mediolateral oblique views of each breast recorded using digital acquisition. Read with the assistance of CAD. .[employer] Version 9.2 LIMITATIONS: None. FINDINGS: No suspicious masses, suspicious calcifications or architectural distortion. No areas of c oncern. IMPRESSION: NEGATIVE MAMMOGRAM. BIRADS 1 BREAST DENSITY: b. There are scattered areas of fibroglandular density. BIRAD: ASSESSMENT: 1 NEGATIVE RECOMMENDATION: ROUTINE SCREENING COMMENT: The patient has been notified of the results by letter per MQSA requirements. Additional no tification policies are in place for contacting patient with suspicious or incomplete findings. Quality ID #[id number]: The [employer] recommends an annual screening mammogram for women aged 40 years or over. This facility utilizes a reminder system to ensure that all patients receive reminder letters, and/or direct phone calls for appointments. This includes reminders for routine scr eening mammograms, diagnostic mammograms, or other Breast Imaging Interventions when appropriate. Th is patient will be placed in the appropriate reminder system. TECHNICAL DOCUMENTATION: FINDING NUMBER: (1) ASSESSMENT: (1) JOB ID: [id number] 2010 [facility]- All Rights Reserved Reading location - IP/workstation name: [email or web address]
== END ==
LOC: WI 07:20
PROVIDERS: ATTEND Family Medicine
DX: Z12.31 Encounter for screening mammogram for malignant neoplasm of breast (principal)
CPT/HCPCS: 77067